=== PATIENT | female | born 1950 | race American Indian/Alaskan Native ===

== ENCOUNTER 2018-12-24 15:56 | Emergency (ER) | payer BC, MEDICARE, OTHER ==
[2018-12-24 16:03] VITALS: BP 168/88
--- NOTE | 2018-12-24 16:03 | Emergency Department Report ---
Blank Doc - Documentation Documentation: 68-year-old female that presents with URI symptoms and body aches. This initial assessment/diagnostic orders/clinical plan/treatment(s) is/are subject to change based on patient's health status, clinical progression and re- assessment by fellow clinical providers in the ED. Further treatment and workup at subsequent clinical providers discretion. Patient/guardians urged not to elope from the ED as their condition may be serious if not clinically assessed and managed. Initial orders include: 1- Patient sent to [facility] for further evaluation and treatment 2- flu swab 3- CXR
--- NOTE | 2018-12-24 16:29 | XRay Report ---
CHEST 2 VIEWS INDICATION / CLINICAL INFORMATION: cough. COMPARISON: None available. FINDINGS: SUPPORT DEVICES: None. HEART / MEDIASTINUM: No significant abnormality. LUNGS / PLEURA: No significant pulmonary or pleural abnormality. No pneumothorax. There are diffusely increased interstitial markings of mild degree. ADDITIONAL FINDINGS: No significant additional findings. IMPRESSION: 1. No acute findings. Signer Name: Edward Bridges MD Signed: 12/24/2018 4:24 PM Workstation Name: [id number]
--- NOTE | 2018-12-24 16:52 | Emergency Department Report ---
Minor Respiratory - HPI Chief Complaint: Upper Respiratory Infection Stated Complaint: WEAK/RUNNY NOSE/PAIN Time Seen by Provider: 12/24/18 16:02 Duration: 1 week Pain Location: Nose Severity: moderate Minor Respiratory: Yes Rhinorrhea, Yes Able to Tolerate Fluids, Yes Sick Contacts (son and his friend), No Sore Throat, No Ear Pain, No Cough, No Hemoptysis, No Chest Pain, No Shortness of Breath, No Fever Other History: This is a 68-year-old -[place] female who presents to the emergency room with nausea, abdominal cramping, chills, and fatigue. Patient states symptoms started one week ago. Her son was sick with similar symptoms and she thinks she possibly caught it from him. Patient reports receiving influenza vaccine from PCP. Patient states she went to [facility] this morning she started feeling nauseous and fatigue. She took some Tylenol and garlic with minimal improvement of symptoms. Patient states originally she started out taken garlic at start of symptoms which felt like it was improving until today. She also reports increased bowel movements which are normal consistency. She denies fever, diaphoresis, vomiting, diarrhea, shortness of breath, myalgia, cough, or weakness. ED Review of Systems ROS: Stated complaint: WEAK/RUNNY NOSE/PAIN Other details as noted in HPI Constitutional: chills. denies: fever ENT: denies: ear pain, throat pain Respiratory: denies: cough, shortness of breath, wheezing Cardiovascular: denies: chest pain, palpitations Gastrointestinal: abdominal pain, nausea. denies: diarrhea, constipation, hematemesis, melena, hematochezia Genitourinary: denies: urgency, dysuria, discharge Musculoskeletal: denies: back pain, joint swelling, arthralgia Skin: denies: rash, lesions Neurological: denies: headache, weakness, paresthesias Psychiatric: denies: anxiety, depression ED Past Medical Hx - Past Medical History Previous Medical History?: No - Surgical History Past Surgical History?: No - Social History Smoking Status: Never Smoker Substance Use Type: None - Medications Home Medications: Home Medications Medication Instructions Recorded Confirmed Last Taken Type Cyclobenzaprine HCl [Flexeril 5 MG 5 mg PO TID PRN #20 tab 07/18/15 Unknown Rx TAB] Ibuprofen [Motrin 800 MG tab] 800 mg PO Q8HR PRN #30 tablet 07/18/15 Unknown Rx Ondansetron [Zofran Odt] 4 mg PO Q8HR PRN #20 tab.rapdis 12/24/18 Unknown Rx Minor Respiratory Exam - Exam General: Vital signs noted. No distress. Alert and acting appropriately. HEENT: Yes Moist Mucous Membranes, Yes Rhinorrhea (Ramiroeman has congested with clear discharge), No Pharyngeal Erythema, No Pharyngeal Exudates, No Conjuctival Injection, No Frontal Tenderness, No Maxillary Tenderness Ear: Neither TM Bulge, Neither TM Erythema, Neither EAC Pain, Neither EAC Discharge Neck: Yes Supple, No Adenopathy Lungs: Yes Good Air Exchange, No Wheezes, No Ronchi, No Stridor, No Cough, No Labored Respirations, No Retractions, No Use of Accessory Muscles, No Other Abnormal Lung Sounds Heart: Yes Regular, No Murmur Abdomen: Yes Normal Bowel Sounds, No Tenderness, No Peritoneal Signs Skin: No Rash, No Edema Neurologic: Alert and oriented, no deficits. Musculoskeletal: Unremarkable. ED Course Vital Signs 12/24/18 16:02 Temperature 98.7 F Pulse Rate 79 Respiratory 18 Rate Blood Pressure 168/88 O2 Sat by Pulse 97 Oximetry ED Medical Decision Making - Lab Data Lab Results 12/24/18 Range/Units Unknown Influenza A (Rapid) Negative (Negative) Influenza B (Rapid) Negative (Negative) - Radiology Data Radiology results: report reviewed CHEST 2 VIEWS INDICATION / CLINICAL INFORMATION: cough. COMPARISON: None available. FINDINGS: SUPPORT DEVICES: None. HEART / MEDIASTINUM: No significant abnormality. LUNGS / PLEURA: No significant pulmonary or pleural abnormality. No pneumothorax. There are diffusely increased interstitial markings of mild degree. ADDITIONAL FINDINGS: No significant additional findings. IMPRESSION: 1. No acute findings. - Medical Decision Making This is a 68 y.o. female that presents with nausea, abdominal cramping, chills, and fatigue since this morning. Patient is stable and was examined by me. Vitals stable. Obtained a rapid flu and chest x-ray. Rapid flu is negative. Chest x- ray dictated by radiologist report reviewed by myself with no acute card iopulmonary findings. Negative abdominal tenderness on focal exam. Mild congestion. Findings are suggestive of gastroenteritis. Start zofran for nausea. Increase fluid intake. Instructed to wash hands frequently. Discussed plan with patient and agreed to plan. No further questions noted by the patient. Discharged home in stable condition. Follow up with PCP in 2-3 days. Critical care attestation.: If time is entered above; I have spent that time in minutes in the direct care of this critically ill patient, excluding procedure time. ED Disposition Clinical Impression: Nausea alone, Abdominal cramping, Gastroenteritis Disposition: - TO HOME OR SELFCARE Is pt being admited?: No Condition: Stable Instructions: Gastroenteritis (ED), Acute Nausea and Vomiting (ED) Additional Instructions: Frequent hand washing is important to reduce spread. Prompt disinfection of contaminated surfaces with household chlorine bleach- based tile and marble installer and washing of soiled clothing and bedding should be advised. If food or water is thought to be contaminated, it should be avoided. Increase fluid intake. Drinks high in sugars such as carbonated soft drinks, fruit juice, and highly sugared liquids should be avoided. Prescriptions: Ondansetron [Zofran Odt] 4 mg PO Q8HR PRN #20 tab.rapdis PRN Reason: Nausea And Vomiting Referrals: [facility] [Provider Group] - 3-5 Days [facility] [Provider Group] - 3-5 Days [facility] [Provider Group] - 3-5 Days CHELSY SOUTH MD [Staff Physician] - 3-5 Days Time of Disposition: 17:26
== END 2018-12-24 17:35 | disposition home or self-care (01) ==
LOC: ED 15:56
DX: K52.9 Noninfective gastroenteritis and colitis, unspecified (principal); Z79.899 Other long term (current) drug therapy
CPT/HCPCS: 71046; 87400